=== PATIENT | female | born 2005 ===

== ENCOUNTER 2024-05-19 15:10 | Emergency (ER) | payer BC, SELFPAY ==
--- NOTE | 2024-05-19 15:12 | MHC.CARE ---
Per Anastasia Cobb with [facility] ([phone], personal cell/ not for the students)?this student is new to the counseling center. Hx of depression and passive SI. Came in to counseling office tearful, reporting worsening depression and active SI. Described feeling sad, hopeless and reporting inability to manage?depressive sx. She shared that SI thoughts are increasing in frequency / intensity and have developed into a plan to overdose on meds/ a mix of meds or to walk into the aden and ?disappear.? She described an inability to handle ?the pain of depression.? The counseling office tried to safety plan with the studen and she attempted but ultimately stated she didn?t trust herself and reported than in ten to fifteen years she envisions herself as being via suicide.?She lives on campus, is a sophomore.?Anastasia will dig deeper into the student's hx and call us back with more info around 430?
[2024-05-19 15:16] VITALS: BP 132/80; PULSE 86; O2SAT 99; BMI 21.0
[2024-05-19 15:48] LABS: MANUAL DIFF FLAG NO
[2024-05-19 15:49] LABS: Basophils Absolute Auto 0.1 X10*3/uL (0.0-0.2); Basophils Percent Auto 0.9 % (0-2); Eosinophils Absolute Auto 0.1 X10*3/uL (0.0-0.4); Eosinophils Percent Auto 2.3 % (0-4); Hemoglobin 14.2 g/dl (12.0-16.0); Imm Gran Abs Auto 0.02 X10*3/uL (0.00-0.03); Imm Gran Pct Auto 0.4 % (0.0-0.4); Lymphocytes Absolute Auto 1.8 X10*3/uL (1.2-4.9); Lymphocytes Percent Auto 31.9 % (20-40); Mean Corpuscular HGB Conc 35.5 g/dl (31.0-35.0); Mean Corpuscular Hemoglobin 30.1 pg (27.0-33.0); Mean Corpuscular Volume 84.7 fL (80.0-98.0); Mean Platelet Volume 8.9 fL (9.4-12.3); Monocytes Absolute Auto 0.4 X10*3/uL (0.1-1.2); Monocytes Percent Auto 7.1 % (2-11); Neutrophils Absolute Auto 3.2 x10*3/uL (2.0-8.3); Neutrophils Percent Auto 57.4 % (45-73); Platelet Count 284 X10*3/uL (160-400); Red Blood Count 4.72 X10*6/uL (4.20-5.50); Red Cell Distribution Width 12.7 % (11.0-16.0); White Blood Count 5.6 X10*3/uL (4.8-10.8)
[2024-05-19 15:58] LABS: Amphetamine Screen Urine Not Detected (Not Detect); Barbiturates, Urine Not Detected (Not Detect); Benzodiazepines Screen Urine Not Detected (Not Detect); Buprenorphine Scr Not Detected (Not Detect); Cannabinoid Screen Urine Not Detected (Not Detect); Cocaine Screen Urine Not Detected (Not Detect); Fentanyl, urine Not Detected (Not Detect); Methadone Screen, Urine Not Detected (Not Detect); Opiate Screen Urine Not Detected (Not Detect); Oxycodone Screen Urine Not Detected (Not Detect); Phencyclidine Screen Urine Not Detected (Not Detect)
--- NOTE | 2024-05-19 16:04 | PC.NURSE ---
pt states that she takes lexapro 15mg daily. she says she has trouble with following a routine and does not take it regularly as she should. she states she took it in the past week. pt also states she takes 3mg melatonin PRN at night
[2024-05-19 16:06] LABS: Acetaminophen LAB < 3 mcg/mL (<30); Salicylate < 5.0 mg/dL (15-30)
[2024-05-19 16:09] VITALS: BP 107/80; PULSE 84; RESP 18; TEMP 36.7; O2SAT 98
[2024-05-19 16:12] LABS: Anion Gap 11 (12-20); Blood Urea Nitrogen 13 mg/dL (9-16); Calcium 9.3 mg/dL (8.4-10.2); Carbon Dioxide 23 mmol/L (22-29); Chloride 110 mmol/L (96-108); Creatinine Clr Calc Pharmacy 92.9; Estimated Glomerular Filt Rate > 60; Ethanol < 10 mg/dL; Glucose Random 88 mg/dL (60-115); HCG Quantitative < 2 mIU/mL; Potassium 3.8 mmol/L (3.3-5.1); Sodium 140 mmol/L (135-145)
--- OUTSIDE RECORDS SUMMARY | 2024-05-19 17:28 | XMS_ITS | Clinical Summary ---
Author Organization [facility] work ([facility]) Address [address] [place] [address] Care Team Providers Care Snow Removal Supervisor Name Role Phone Evette Allen MD Primary Care Provider Source Comments The information that you have received may contain highly confidential and/or federally protected health information. This information has been disclosed to you from records protected by [employer]. The law prohibits you from making any further disclosure of this information unless further disclosure is expressly permitted by the written consent of the person to whom it pertains or is authorized by the Confidentiality of HIV-Related Information Act. A general authorization for the releaseof medical or other information is not sufficient. This information may include information relatedto diagnosis and/or treatment of HIV, mental health, or drug and alcohol-related conditions. Any disclosure, dissemination, distribution, or copying of this information is strictly prohibited. If youfeel that you have received this information in error, please contact the sender immediately.[facility] ([facility]) Allergies Active Allergy Reactions Criticality Noted Date Comments Penicillins Unknown 07/24/2009 01/20/06 Medications escitalopram (LEXAPRO) 10 mg tabletIndication s:HILARIA (generalized anxiety disorder),Other depression Take 1 tablet (10 mg total) by mouth daily . 90 tablet 5 03/20/2024 Active escitalopram oxalate (LEXAPRO) 5 mg tabletIndication s:HILARIA (generalized anxiety disorder),Other depression Take 1 tablet (5 mg total) by mouth daily . 90 tablet 5 03/20/2024 Active buPROPion (WELLBUTRIN XL) 150 mg 24 hr tabletIndication s:Other depression Take 1 tablet (150 mg total) by mouth daily . 100 tablet 3 03/20/2024 Active Active Problems No known active problems Encounters Date Type Department Care Team Description 03/20/2024 2:30 PM EST Office Visit [facility] [address] [place] [address] Evette Allen MD HILARIA (generalized anxiety disorder) (Primary Dx); Other depression; Flu vaccine need; COVID-19 virus infection from Last 3 Months Immunizations Immunization Administration Dates Next Due COVID-19 (PFIZER, Comirnaty 2022+)(PF), 12y+ 03/20/2024 DTaP 07/13/2007 DTaP / Hep B / IPV 04/30/2005,03/04/2005, 005 DTaP / IPV 11/26/2008 HPV 9-Valent 11/09/2016,11/07/2015 Hep A, 2 Dose 11/26/2008,11/02/2005 HiB 11/02/2005, 6,03/04/2005,01/02 Influenza, Live Trivalent (L AIV3), (Nasal) 11/26/2008 Influenza, Trivalent (IIV3), (PF)(IM) 03/20/2024 Influenza, Unspecified 04/04/2021,2019,02/21/2019,12/21,11/09/2016,12/15/2012,12/15/2011 ,01/14/2011,11/27/2010 MMR (Measles, Mumps, Rubella) 11/26/2008, 008 Meningococcal B, OMV (Bexsero) 06/23/2022 Meningococcal MCV4, Unspecified 04/04/2021,11/06 Pneumococcal Conjugate 7-li ent (PCV-7) 11/02/2005,04/30/2005,03/04/2005,01/02 Tdap 11/07/2015 Varicella 11/26/2008,07/13/2007 Surgical History Surgery Date Site/Laterality Comments WISDOM TOOTH EXTRACTION Medical History Medical History Date Comments Anxiety Depression Headache Family History Medical History Relation Name Comments Bipolar disorder Father ADD / ADHD Mother Anxiety disorder Mother Bipolar disorder Mother Depression Mother Relation Name Status Comments Father Mother Alive Sister Alive Social History Tobacco Use Types Packs/Day Years Used Date Smoking Tobacco: Never Smokeless Tobacco: Never Alcohol Use Standard Drinks/Week Comments Never 0 (1 standard drink = 0.6 oz pur e alcohol) PHQ-2 Answer Date Recorded PHQ-9 Total Score 2 03/20/2024 Social Connections Answer Date Recorded How often do you feel isolated from others? Some of the time 03/20/2024 Financial Resource Strain Answer Date R ecorded Sometimes people find that t [employer] income does not quite cover their living costs. In the last 12 months, has this happened to you? Don't know 03/20/2024 What is your current work situation? Part-time o r temporary work 03/20/2024 Stress Answer Date Recorded Over the last 2 weeks, how o ften have you been bothered by the following problems: feeling nervous, anxious, on edge? More than half the days 03/20/2024 Over the last 2 weeks, how o ften have you been bothered by the following problems: Not being able to stop or control worrying? Several days 03/20/2024 Food Insecurity Answer Date Recorded Within the past 12 months we worried whether our food would run out before we got the money to buy more. I choose not to answer 03/20/2024 Within the past 12 months th e food we bought just didn't last and we didn't have money to get more. Never true 03/20/2024 Safety and Environment Answer Date Robin rded Do you feel physically and e motionally safe where you currently live? Yes 03/20/2024 Housing Stability Answer Date Recorded Are you worried about losing your housing? I cho ose not to answer 03/20/2024 In the past 12 months has th e electric, gas, oil, or water company threatened to shut off services in your home? No 03/20/2024 Health Literacy Answer Date Recorded How often do you need to hav e someone help you when you read instructions, pamphlets, or other written material from your doctor or pharmacist? Never 03/20/2024 I know how to find helpful health resources on t internet. 2 03/20/2024 Alcohol and Drug Use Answer Date Record ed Females: In the past year, h ave you had more than 7 drinks in one week? No 03/20/2024 Males greater than 65 years of age: In the past year, have you had more than 7 drinks in one week? Unrecognized value 08/2024 Males less than or equal to 65 years of age: In the past year, have you had more than 14 drinks in one week? Unrecognized value 03/20/2024 In the past year, have you u sed any drugs other than those prescribed by your doctor? No 03/20/2024 Transportation Answer Date Recorded Has a lack of transportation kept you from medical appointments, meetings, work, or from getting things needed for daily living. Check all that apply. No 03/20/2024 Access Answer Date Recorded In the past year, have you b een unable to get childcare when it was really needed? Not Applicable 03/20/2024 In the past year, have you b een unable to get clothing when it was really needed? No 03/20/2024 In the past year, have you b een unable to get medicine or any health care when it was really needed? I choose not to answer 03/20/2024 Do you have access to any of the following devices? Smartphone( cell phone with a touchscreen and internet);Computer(laptop, desktop, or tablet such as an iPad) 03/20/2024 Utilities Answer Date Recorded In the past 12 months has e [employer], gas, oil, or water [employer] threatened to shut off services in your home? No 03/20/2024 Comments Unknown Sex and Gender Information Value Date Recorded Sex Assigned at Not on file Legal Sex Female 4:57 PM EDT Gender Identity Not on file Sexual Orientation Not on file Occupation Industry Job Start Date Job End Date student at [employer] Not on file Not on file N ot on file Obstetrics History Growth Chart Information Age Height Weight [id number] th Percentile BMI Percentile Head Circum Head Circum Percentile Date 18 years 154.9 cm (5' 1 ) 54.5 kg (120 lb 3.2 oz) 62.15%* 2024 * [facility] (Girls, 2-20 Years) Last Filed Vital Signs Vital Sign Reading Time Taken Comments Blood Pressure 106/60 03/20/2024 2:52 PM EST Pulse - - Temperature - - Respiratory Rate 16 03/20/2024 2:52 PM EST Oxygen Saturation - - Inhaled Oxygen Concentration - - Weight 54.5 kg (120 lb 3.2 oz) 03/20/2024 2:52 P M EST Height 154.9 cm (5' 1 ) 03/20/2024 2:52 PM EST Body Mass Index 22.71 03/20/2024 2:52 PM EST Plan of Treatment Health Maintenance Due Date Last Done Comments HIV SCREEN 2004 Drug and Alcohol Screening 2016 LIPID PANEL 2021 HEPATITIS C SCREEN 2022 Meningococcal B Vaccine (2 of 2 - Bexsero SCDM 2-dose series) 12/23/2022 06/23/2022 Depression Screen 03/20/2025 03/20/2024 Social Determinants of Health 03/20/2025 03/20/2024 DTaP/Tdap/Td Vaccines (7 - Td or Tdap) 11/06/2025 11/07/2015, 11/26/2008, 07/13/2007, Additional history exists RSV Vaccine: Adults (60 yrs and older) and Patients (1 - 1-dose 75+ series) 11/01/2079 Hepatitis B Vaccine Completed 04/30/2005, 03/04/2005, 01/02/2005 Pneumococcal Vaccine: Pediatrics (0 to 5 Years) and At-Risk Patients (6 to 49 Years) Aged Out 11/02/2005, 04/30/2005, 03/04/2005, Additional history exists No longer eligible based on patient's age to complete this topic HPV VACCINES Completed 11/09/2016, 11/07/2015 COVID-19 Vaccine Completed 03/20/2024, 01/2023, 04/04/2021, Additional history exists INFLUENZA VACCINES Completed 03/20/2024, 0 04/04/2021, 02/28/2020, Additional history exists ROTAVIRUS VACCINES Aged Out No longer eligible based on patient's age to complete this topic Insurance Care Teams Snow Removal Supervisor Relationship Specialty Start Date End Date Evette Allen MD [address] [place] [address] PCP - General Internal Medicine 03/20/24
--- OUTSIDE RECORDS SUMMARY | 2024-05-19 17:28 | XMS_ITS | Referral Summary ---
Author Organization [facility] work ([facility]) Address [address] [place] [address] Care Team Providers Care Applications Programmer Name Role Phone Evette Allen MD Primary Care Provider [phone] Source Comments The information that you have received may contain highly confidential and/or federally protected health information. This information has been disclosed to you from records protected by [employer]. The law prohibits you from making any [...] information in error, please contact the sender immediately.[facility] ([facility]) Encounters Date Type Department Care Team Description 03/20/2024 2:30 PM EST Office Visit [facility] [address] [place] [address] Evette Allen MD HILARIA (generalized anxiety disorder) (Primary Dx); Other depression; Flu vaccine need; COVID-19 virus infection from Last 3 Months Allergies Active Allergy Reactions Criticality Noted Date [...] Active Active Problems No known active problems Immunizations Immunization Administration Dates Next Due COVID-19 ([place], Mine[employer]This 2022+)(PF), 12y+ 03/20/2024 DTaP 07/13/2007 DTaP / [...] ent (PCV-7) 11/02/2005,04/30/2005,03/04/2005,01/02 Tdap 11/07/2015 Varicella 11/26/2008,07/13/2007 Social History Tobacco Use Types Packs/Day Years [...] R ecorded Sometimes people find that t heir income does not quite cover their living [...] how to find helpful health resources on [facility] internet. 2 03/20/2024 Alcohol and Drug Use [...] In the past 12 months has e [employer] gas, oil, or water [employer] threatened to shut off services in your home? No 03/20/2024 Comments Unknown Sex and Gender Information Value Date Recorded Sex Assigned at Not on file Legal Sex Female 4:57 PM EDT Gender Identity Not on file Sexual Orientation Not on file Occupation Industry Job Start Date Job End Date student at [employer] Not on file Not on file N ot on file Last Filed Vital Signs Vital Sign Reading [...] 03/20/2024 2:52 PM EST Plan of Treatment Not on file Insurance [facility]) Care Teams Applications Programmer Relationship Specialty Start Date End Date Evtete Allen MD [address] [place] [address] PCP - General Internal Medicine 03/20/24
--- OUTSIDE RECORDS SUMMARY | 2024-05-19 17:28 | XMS_ITS | Encounter Summary ---
Author Organization [facility] work ([facility]) Address [address] [facility] [address] [facility] [address] [place] [address] Care Team Providers Care Edge Kitter Name Role Phone Evette Allen MD Primary Care Provider [phone] Source Comments The information that you have received may contain highly confidential and/or federally protected health information. This information has been disclosed to you from records protected by [employer]. The law prohibits you from making any [...] information in error, please contact the sender immediately.[facility] ([facility]) Encounter Details Date Type Department Care Team (Late st Contact Info) Description 09/02/2016 Historical Note [facility] HISTORICAL [address] [place] [address] Calista Orellana MD [address] [place] [address] Social History Tobacco Use Types Packs/Day Years Used Date Smoking Tobacco: Never Assessed Comments Unknown Sex and Gender Information Value Date Recorded Sex Assigned at Not on file Legal Sex Female 4:57 PM EDT Gender Identity Not on file Sexual Orientation Not on file documented as of this encounter Progress Notes * Calista Orellana MD - 09/09/2016 12:00 AM EDT Time of Exam: ADDENDUM: [facility] [address] [facility] called me up and told me that the patient was highly allergic to penicillins. We did not have this on our chart, so I switched over to a cefuroxime axetil 500 mg p.o. b.i.d. for 21 days and she is to follow up with her own family doctor. RPS/MODL D-09/09/2016 06:29:14 T-09/09/2016 08:37:32 JOB#:[id number] D#[id number] Calista Orellana MD Signed by CALISTA ORELLANA MD on 11 SEP 2016 15:15:15 GMT * Calista Orellana MD - 09/08/2016 12:00 AM EDT Time of Exam: Her Lyme disease is positive for both IgG and IgM. I spoke with Dr. Bolanos from [facility]. He has had a [place] presentation brought to his practice about Lyme disease and Gomez palsy and the way they are treating it after conferring with [facility] is amoxicillin 500 p.o. t.i.d. x28 days. I phoned in a prescription to [facility] at [phone] for this as well. I spoke with Dr. Bolanos and the mother, who verbalized understanding. FINAL DIAGNOSES: 1. Lyme disease. 2. Gomez palsy. RPS/MODL D-09/08/2016 14:38:34 T-09/08/2016 16:56:42 JOB#:[id number] Calista Orellana MD Signed by CALISTA ORELLANA MD on 09 SEP 2016 10:12:07 GMT * Calista Orellana MD - 09/02/2016 12:00 AM EDT Time of Exam: CHIEF COMPLAINT: This is a young lady who presents with 1 day of facial weakness. HISTORY OF PRESENT ILLNESS: This woman woke up today and she noticed that the right side of her face was weak. She was having trouble closing her eye. Now, she has droopiness in her mouth. She has no headache. No ear pain. No nausea, vomiting, fever, or chills. She has a history of Lyme disease. She was not recently bitten by any ticks, but she did take a nature walk in the aden. She has had no other rash. No loss of function in the arms and legs. No change in vision. She has had no trauma to the head. PAST MEDICAL HISTORY: Full-term, up-to-date immunizations. Rarely sick. SOCIAL HISTORY: Lives at home with her parents. FAMILY HISTORY: Positive for hypertension. REVIEW OF SYSTEMS: All 10 review of systems negative. PHYSICAL EXAMINATION: Time seen is arrival. GENERAL: She is awake, alert, oriented to name, place, purpose of being here. Speaking in clear, fluent sentences with no bizarre thought content. VITAL SIGNS: Temperature is 37.1, pulse 60, blood pressure 99/67, respirations 18, saturating 98%. HEENT: Pupils equal, round, and reactive to light. Extraocular muscles intact. She cannot close the right eye. There is no rhinorrhea. Pharynx is moist. There is a right-sided facial droop. Tongue protrudes in midline. Speech is clear. Normal sensical. Tympanic membranes are normal. There is no facial rash. NECK: Supple. No nuchal rigidity. No anterior cervical lymphadenopathy. LUNGS: Clear to auscultation. Breath sounds equal bilaterally. HEART: S1, S2. Regular rate and rhythm without murmur. ABDOMEN: Soft, nontender. No rebound. No guarding. SKIN: Good turgor. Skin without rash. EXTREMITIES: Muscle strength is 5/5, upper extremities and lower extremities. DIFFERENTIAL DIAGNOSIS: Includes causes of facial weakness. LABORATORY DATA: CAT scan of the brain by my initial interpretation shows a mass, lesion, stroke, or bleed. Lyme test was sent as an outpatient. ASSESSMENT: Acute Gomez palsy. PLAN: I am going to put her on prednisone and have her follow up with her tire buster. If the Lyme test is positive, we will call her back. FINAL DIAGNOSES: Acute facial paralysis and Gomez palsy, right face. PHYSICIAN: Personal family MD. CONDITION: Improved. Nursing notes reviewed and agreed. RPS/MODL D-09/02/2016 19:17:53 T-09/03/2016 03:40:51 JOB#:[id number] Calista Orellana MD Signed by CALISTA ORELLANA MD on 03 SEP 2016 21:33:18 GMT documented in this encounter Plan of Treatment Not on file documented as of this encounter Visit Diagnoses Not on filedocumented in this encounter Care Teams Edge Kitter Relationship Specialty Start Date End Date Evette Allen MD [address] [facility] [place] [address] PCP - General Internal Medicine 03/20/24 documented as of this encounter
[2024-05-19 18:13] VITALS: BP 106/72; PULSE 66; RESP 12; TEMP 36.9; O2SAT 97
--- NOTE | 2024-05-19 18:59 | ED_ITS ---
HPI - General Adult General Chief complaint: Psychiatric Symptoms Stated complaint: SI,-ATTEMPT,VOLUNTARY PSYCH EVAL PER EMS History of Present Illness ED Provider: Dr. Faustin HPI narrative: 18 y/o F patient; PMH anxiety/depression on Escitalopram; presents from [facility] with report of suicidal ideation. The patient states she feels hopeless and unsafe on her own. The patient spoke with the [facility] who referred her to the emergency department on a section 12 for further evaluation. She denies medical complaints. She denies homicidal ideation. The patient states she has been poorly compliant with her escitalopram. Related Data Home Medications ?Medication ?Instructions ?Recorded ?Confirmed escitalopram oxalate 5 mg tablet 15 mg PO DAILY 05/19/24 05/19/24 melatonin 3 mg tablet 3 mg PO BEDTIME PRN Insomnia 05/19/24 05/19/24 Allergies Allergy/AdvReac Type Severity Reaction Status Date / Time Penicillins Allergy Unknown Verified 05/19/24 15:24 Review of Systems 2 Review of Systems: Yes all other systems are reviewed and are negative [facility] Past Medical History Attestation statement: The following information was validated with the patient. Source: unable to obtain Social History Social History Smoked in Last 30 Days: No Use of substances other than those prescribed or required for medical reasons: No Advance Directives: No Advance Directives Information Provided: No Physical Exam ED Vital Signs: Vital Signs - 24 hr 05/19/24 16:09 05/19/24 18:13 Temperature 98.1 F 98.4 F Pulse Rate 84 66 Respiratory Rate 18 12 Blood Pressure 107/80 106/72 Pulse Oximetry 98 97 Oxygen Delivery Method Room Air Room Air BMI result Body Mass Index 21.0 Patient is afebrile and hemodynamically stable. Const General: cooperative and no acute distress HENMT Head: Yes normal to inspection and Yes atraumatic Eyes General: appearance normal, both eyes and all related structures Pupils: Equal, round and reactive pupils present EOM: EOMs intact bilaterally Neck Neck: Yes normal visual inspection, Yes full ROM, Yes supple and No tender Chest Chest palpation & inspection: normal inspection of the chest and normal palpation of entire chest wall Resp Effort & Inspection: normal respiratory effort, able to speak in complete sentences, no cough and no respiratory distress Auscultation: clear to auscultation bilaterally Cardio Rate: regular rate Rhythm: regular rhythm Peripheral pulses: Peripheral pulses 2+ throughout GI Inspection: No Abdominal wall edema and No distended Palpation (GI): Soft to palpation, not firm, nontender, no guarding and not rigid Auscultation: normal bowel sounds Back/Spine/Pelvis Back: No back tenderness Neuro Cranial nerves: Yes Equal, round and reactive pupils present Course Course Course Narrative: Patient is afebrile and hemodynamically stable. Will medically cleared for crisis evaluation. Labs reviewed. Hcg negative. Plan: Pending crisis team evaluation Condition: Stable Medical Decision Making Lab Data 05/19/24 15:43 05/19/24 15:43 Labs: Lab Results 05/19/24 05/19/24 Range/Units 15:42 15:43 WBC 5.6 (4.8-10.8) X10*3/uL RBC 4.72 (4.20-5.50) X10*6/uL Hgb 14.2 (12.0-16.0) g/dl Hct 40.0 (37.0-47.0) % MCV 84.7 (80.0-98.0) fL MCH 30.1 (27.0-33.0) pg MCHC 35.5 H (31.0-35.0) g/dl RDW 12.7 (11.0-16.0) % Plt Count 284 (160-400) X10*3/uL MPV 8.9 L (9.4-12.3) fL Immature Gran % (Auto) 0.4 (0.0-0.4) % Neut % (Auto) 57.4 (45-73) % Lymph % (Auto) 31.9 (20-40) % [place] % (Auto) 7.1 (2-11) % Eos % (Auto) 2.3 (0-4) % Baso % (Auto) 0.9 (0-2) % Lymph # (Auto) 1.8 (1.2-4.9) X10*3/uL [place] # (Auto) 0.4 (0.1-1.2) X10*3/uL Eos # (Auto) 0.1 (0.0-0.4) X10*3/uL Baso # (Auto) 0.1 (0.0-0.2) X10*3/uL Abs Immat Gran (auto) 0.02 (0.00-0.03) X10*3/uL Absolute Neuts (auto) 3.2 (2.0-8.3) x10*3/uL Absolute Nucleated RBC 0.000 (0.0-0.012) X10*3/uL Nucleated RBC % (auto) 0.0 (0.0-0.2) /100WBC Sodium 140 (135-145) mmol/L Potassium 3.8 (3.3-5.1) mmol/L Chloride 110 H (96-108) mmol/L Carbon Dioxide 23 (22-29) mmol/L Anion Gap 11 L (12-20) BUN 13 (9-16) mg/dL Creatinine 0.77 (0.5-1.4) mg/dL Estim Creat Clear Calc 92.9 Estimated GFR > 60 Random Glucose 88 (60-115) mg/dL Calcium 9.3 (8.4-10.2) mg/dL Beta HCG, Quant < 2 mIU/mL Salicylates < 5.0 L (15-30) mg/dL Urine Opiates Screen Not Detected (Not Detect) Ur Buprenorphine Scrn Not Detected (Not Detect) ng/mL Ur Oxycodone Screen Not Detected (Not Detect) ng/mL Urine Methadone Screen Not Detected (Not Detect) ng/mL Urine Fentanyl Screen Not Detected (Not Detect) Acetaminophen < 3 (<30) mcg/mL Ur Barbiturates Screen Not Detected (Not Detect) Ur Phencyclidine Scrn Not Detected (Not Detect) Ur Amphetamines Screen Not Detected (Not Detect) U Benzodiazepines Scrn Not Detected (Not Detect) Urine Cocaine Screen Not Detected (Not Detect) U Marijuana (THC) Screen Not Detected (Not Detect) Ethyl Alcohol < 10 mg/dL Discharge Plan Discharge Clinical Impression: Suicidal ideation Patient Disposition: Still a Patient Prescriptions: No Action escitalopram oxalate 5 mg Tablet 15 mg PO DAILY melatonin 3 mg Tablet 3 mg PO BEDTIME PRN (Reason: Insomnia) Interventions: Cottle-Suicide Risk Severity Scale Last Done: 05/19/24 15:36 Print Language: Turkmen
--- NOTE | 2024-05-19 21:05 | MHC.CARE ---
Pt was assessed by the CARE team, Pt was referred to [facility] for ACCS placement. Pt is voluntary at this time and will remain in the ER overnight as bed search is completed. Pt will be reassessed by CARE team tomorrow if placement is not found.
--- NOTE | 2024-05-19 21:45 | PC.NURSE ---
Patient in commons area and very tearful. Nurse engaged in conversation with patient and she states I am just overwhelmed with life. Patient states she goes to [employer] and is studying Biology. Offered patient Melatonin to sleep and she obliged. Patient is now in room resting with TV on at this time.
[2024-05-19] MEDS: Melatonin 3 MG TABLET PO (21:48)
[2024-05-20 05:59] VITALS: BP 94/61; PULSE 85; RESP 14; TEMP 37.1; O2SAT 99
--- NOTE | 2024-05-20 07:23 | PC.NURSE ---
Assumed care of patient at 0645, patient appears to be in no apparent distress this am, sleeping, respirations even and unlabored. Continue plan of care for respite bedsearch
[2024-05-20] MEDS: Escitalopram Oxalate 5 MG TABLET 15 MG PO (08:12)
--- NOTE | 2024-05-20 13:47 | MHC.CARE ---
Call from [facility], patient accepted to [facility] for 4:00 pm today. Bring medication or send Rx to [facility] on .
[2024-05-20 15:45] VITALS: BP 106/88; PULSE 74; RESP 16; TEMP 36.4; O2SAT 99
== END 2024-05-20 15:50 | disposition skilled nursing facility (03) ==
PROVIDERS: Emergency Provider Emergency Medicine
DX: R45.851 Suicidal ideations (principal); F41.9 Anxiety disorder, unspecified; F32.9 Major depressive disorder, single episode, unspecified; Z79.899 Other long term (current) drug therapy
CPT/HCPCS: 36415; 80048; 80143; 80179; 80307; 84702; 85025; 99284; S9485